=== PATIENT | female | born 1970 | race Caucasian/White ===

== ENCOUNTER 2019-11-17 15:53 | Emergency (ER) | payer BC, SELFPAY ==
[2019-11-17 16:06] VITALS: BP 115/64; PULSE 101; RESP 18; TEMP 37.2; O2SAT 100
--- NOTE | 2019-11-17 16:18 | ED.DENTAL ---
HPI - Dental/Oral General Chief complaint: Dental/Oral Stated complaint: abscess tooth/ear pain Time Seen by Provider: 11/17/19 16:18 Source: patient Mode of arrival: ambulatory Limitations: no limitations History of Present Illness HPI Narrative: Sandra Jamison is a 49 yo female who is on disability for anxiety, no hypertension are high blood pressure, comes here if with right ear decreased hearing and right tooth pain. 2 upper teeth are cracked and broken off Related Data Allergies Allergy/AdvReac Type Severity Reaction Status Date / Time No Known Allergies Allergy Verified 11/17/19 16:20 Review of Systems Review of Systems: Narrative: CONSTITUTIONAL: Denies fever, chills, sweats. EYES: Denies visual changes, redness, discharge. ENT: Denies rhinorrhea, congestion, sore throat, otalgia. Tooth pain right upper side, R ear feels clogged CARDIOVASCULAR: Denies chest pain, palpitations, edema. RESPIRATORY: Denies dyspnea, wheezing, cough GASTROINTESTINAL: Denies abdominal pain, nausea, vomiting, diarrhea. GENITOURINARY: Denies dysuria, hematuria, abnormal discharge SKIN: Denies rash or itching. NEUROLOGIC: Denies numbness, or focal weakness. PSYCHIATRIC: Denies anxiety or depression. PMFSH Past Medical History Medical History Anxiety No pertinent family history Surgical History Surgical History H/O section Family History Family History (Updated 11/17/19 @ 16:33 by Marta Ramos CNP) Other No active medical problems Social History Social History Smoking packs per day: 0.5 Smoking cigarettes per day: 10.0 Smoking status: Current every day smoker Alcohol intake: current Gender identity (if verbalized by the patient): Female Comments At time of signature, I agree with nursing past medical, surgical, social and family history. There is no relevant family history pertinent to the presenting complaint. Exam Narrative: Exam Narrative: GENERAL: This is a well-nourished, well-developed patient, in mild distress. HEAD: normocephalic, atraumatic. EYES: Sclera clear/white. Vision is grossly intact. EARS: External ears normal, auditory canals clear on L, R has cerumen and without drainage, TMs normal without perforation. Hearing grossly intact on L, decreased on R NOSE: External nose normal with nasal discharge, nares without redness, has rhinorrhea. Mouth: 2 upper right teeth- 1 fractured THROAT: Mucous membranes moist, NECK: Neck supple, non-tender CARDIOVASCULAR: Regular rate and rhythm without murmurs, gallops, or rubs. RESPIRATORY: Clear to auscultation. Breath sounds equal bilaterally. No wheezes, rales, or rhonchi. Occ dry cough GASTROINTESTINAL: Abdomen soft, non-tender, SKIN: warm, intact with no suspicious lesions or rash, good texture and turgor. NEURO: awake, alert, and oriented to person, place and time. There were no obvious focal neurologic abnormalities. Steady gait EXTREMITIES: Normal range of motion. BACK: Nontender without deformity Course Course Emergency Course: Started on PCN and debrox-make appointment with oral surgeon to have tooth removed Vital Signs Vital signs: Vital Signs Temperature 98.9 F 11/17/19 16:06 Pulse Rate 101 H 11/17/19 16:06 Respiratory Rate 18 11/17/19 16:06 Blood Pressure 115/64 11/17/19 16:06 Pulse Oximetry 100 11/17/19 16:06 Temperature 98.9 F 11/17/19 16:06 Pulse Rate 101 H 11/17/19 16:06 Respiratory Rate 18 11/17/19 16:06 Blood Pressure 115/64 11/17/19 16:06 Pulse Oximetry 100 11/17/19 16:06 [facility] - Dental/Oral Differential Diagnosis Differential diagnosis: Likely dental caries, toothache, dental abscess and fracture of tooth Discharge Plan Discharge Clinical Impression: Toothache, Excessive cerumen in right ear canal Fracture of
== END 2019-11-17 16:43 | disposition home or self-care (01) ==
PROVIDERS: Emergency Provider Nurse Practitioner
DX: K08.89 Other specified disorders of teeth and supporting structures (principal); H61.21 Impacted cerumen, right ear; S02.5XXA Fracture of tooth (traumatic), initial encounter for closed fracture; X58.XXXA Exposure to other specified factors, initial encounter; F17.210 Nicotine dependence, cigarettes, uncomplicated
CPT/HCPCS: 99213; G0463

== ENCOUNTER 2020-03-18 13:47 | Emergency (ER) | payer BC, SELFPAY ==
--- NOTE | 2020-03-18 14:01 | ED.GENADULT ---
HPI - General Adult General Chief complaint: Dental/Oral Stated complaint: tooth pain Time Seen by Provider: 03/18/20 14:02 Source: patient Mode of arrival: ambulatory Limitations: no limitations History of Present Illness HPI narrative: 49-year-old female patient presents to the [facility] with complaints of dental pain that started yesterday. Patient states she has had multiple dental abscesses to the same area before the past. Patient states they have been on and off again for about a year states she still has not seen a dentist due to the fact that she has a lot of anxiety about going to the dentist. Patient denies any fevers. Denies any sore throat, runny nose, cough, chest pain or shortness of breath. Related Data Allergies Allergy/AdvReac Type Severity Reaction Status Date / Time No Known Allergies Allergy Verified 11/17/19 16:20 Review of Systems Review of Systems: Narrative: CONSTITUTIONAL: Denies fever, chills, or sweats. EYES: Denies visual changes, redness, or discharge. ENT: Denies rhinorrhea, congestion, sore throat, or otalgia. Positive dental pain since yesterday CARDIOVASCULAR: Denies chest pain, palpitations, or edema. RESPIRATORY: Denies cough or dyspnea. GASTROINTESTINAL: Denies abdominal pain, nausea, vomiting, or diarrhea. GENITOURINARY: Denies dysuria or hematuria. SKIN: Denies rash or itching. MUSCULOSKELETAL: Denies back pain, joint pain, or myalgia. NEUROLOGIC: Denies headache, numbness, or weakness. PSYCHIATRIC: Denies anxiety or depression. [facility] Past Medical History Medical History Anxiety No pertinent family history Surgical History Surgical History H/O section Family History Family History Other No active medical problems Social History Social History Smoking packs per day: 0.5 Smoking cigarettes per day: 10.0 Smoking status: Current every day smoker Alcohol intake: current Gender identity (if verbalized by the patient): Female Comments At the time of my signature I agree with nursing past medical history, surgical, social, and family history. There is no relevant family history pertinent to the presenting complaint. Exam Narrative: Exam Narrative: GENERAL: Well-appearing, well-nourished, and in no acute distress. HEAD: Normocephalic, atraumatic. EYES: PERRLA and EOMI. ENT: Nares clear, no rhinorrhea or epistaxis. Mucous membranes moist. Patient has slight erythema noted to the right upper gum no obvious abscess visualized. There is a slight bump that is palpated to the right cheek area but not visualized. Patient does have very slight swelling noted to the left maxillary sinus as compared to the left. No warmth present. No obvious dental caries or broken teeth noted. NECK: Supple. No lymphadenopathy CHEST: Clear to auscultation. No respiratory distress. HEART: Regular rate and rhythm. No murmur heard. Normal peripheral pulses. ABDOMEN: Soft, nontender, nondistended, normal active bowel sounds. EXTREMITIES: Normal range of motion. No edema. SKIN: Warm, dry, no rash. NEURO: No focal deficits. Alert and oriented x3. Course Vital Signs Vital signs: Vital Signs Temperature 36.6 C 03/18/20 14:03 Pulse Rate 100 03/18/20 14:03 Respiratory Rate 16 03/18/20 14:03 Blood Pressure 132/67 03/18/20 14:03 Pulse Oximetry 100 03/18/20 14:03 Temperature 36.6 C 03/18/20 14:03 Pulse Rate 100 03/18/20 14:03 Respiratory Rate 16 03/18/20 14:03 Blood Pressure 132/67 03/18/20 14:03 Pulse Oximetry 100 03/18/20 14:03 Vital signs reviewed. Medical Decision Making Differential Diagnosis Differential Diagnosis: Differential diagnosis: Dental caries, periodontal disease, avulsed tooth, tooth infections, mandibular infe
[2020-03-18 14:03] VITALS: BP 132/67; PULSE 100; RESP 16; TEMP 36.6; O2SAT 100
== END 2020-03-18 14:24 | disposition home or self-care (01) ==
PROVIDERS: Emergency Provider Nurse Practitioner Family
DX: K04.7 Periapical abscess without sinus (principal); F17.210 Nicotine dependence, cigarettes, uncomplicated
CPT/HCPCS: 99213; G0463

== ENCOUNTER 2022-12-08 15:33 | Emergency (ER) | payer BC, SELFPAY ==
[2022-12-08] VITALS (8 sets, daily range): BP systolic 98–121; BP diastolic 46–77; PULSE 71–97; RESP 16–18; TEMP 35.9–36.7; O2SAT 100
[2022-12-08 16:00] LABS: Basophils Percent Auto 0.6 % (0.2-1.2); Eosinophils Absolute Auto 0.1 K/mm3 (0-0.3); Eosinophils Percent Auto 1.2 % (0-4.4); Hematocrit 28.7 % (37.0-47.0); Hemoglobin 7.3 g/dL (12.0-15.0); Immature Granulocyte Absolute 0.01 K/mm3 (0.00-0.031); Immature Granulocyte Percent A 0.1 % (0-0.5); Lymphocytes Absolute Auto 1.47 K/mm3 (0.9-3.2); Lymphocytes Percent Auto 21.2 % (18.3-44.2); Mean Corpuscular HGB Conc 25.4 g/dl (32-36); Mean Corpuscular Hemoglobin 18.1 pg (26-34); Mean Corpuscular Volume 71.2 fl (80-100); Mean Platelet Volume 9.2 fl (7.4-10.4); Monocytes Absolute Auto 0.5 K/mm3 (0.1-0.6); Monocytes Percent Auto 7.4 % (2.6-8.5); Neutrophils Absolute Auto 4.8 K/mm3 (1.3-6.7); Neutrophils Percent Auto 69.5 % (45.5-73.1); Platelet Count Result 567 k/mm3 (150-375); Red Blood Count 4.03 M/mm3 (4.2-5.4); Red Cell Distribution Width 25.1 % (11.5-14.5); White Blood Count 6.9 K/mm3 (4.5-10.0)
[2022-12-08 16:10] LABS: Anisocytosis 1+ (NORMAL); Ovalocytes 1+ (NORMAL); Platelet Estimate Adequate (Adequate)
[2022-12-08 16:11] LABS: Hypochromasia 2+ (NORMAL); Macrocytosis 1+ (NORMAL); Schistocytes None Seen (NORMAL); Target Cells 1+ (NORMAL); Tear Drop Cells 1+ (NORMAL)
[2022-12-08 16:12] LABS: Alanine Aminotransferase 16 U/L (6-35); Albumin Level 4.5 g/dL (3.5-5.1); Alkaline Phosphatase 65 U/L (38-126); Anion Gap 6 mmol/L (8-16); Aspartate Amino Transferase 30 U/L (14-36); Bilirubin,Total 0.4 mg/dL (0.2-1.3); Blood Urea Nitrogen 10 mg/dL (7-17); Calcium 9.5 mg/dL (8.4-10.2); Carbon Dioxide 24 mmol/L (22-30); Chloride 104 mmol/L (98-107); Estimated CRCL calculation 77 ml/min; Estimated Glomerular Filt Rate > 60; Glucose 91 mg/dL (65-110); Potassium 3.7 mmol/L (3.4-5.0); Sodium 134 mmol/L (137-145)
--- NOTE | 2022-12-08 19:26 | ED.RECABL ---
HPI - Recheck/Abnormal Lab/Rx General Chief Complaint: Recheck/Abnormal Lab/Rx <ALFREDO Zhao Last Filed: 12/09/22 02:45> Stated Complaint: needs blood transfusion <ALFREDO Zhao Last Filed: 12/09/22 02:45> Time Seen by Provider: 12/08/22 18:12 <ALFREDO Zhao Last Filed: 12/09/22 02:45> Source: patient <ALFREDO Zhao Last Filed: 12/09/22 02:45> Mode of arrival: ambulatory <ALFREDO Zhao Last Filed: 12/09/22 02:45> Limitations: no limitations <ALFREDO Zhao Last Filed: 12/09/22 02:45> History of Present Illness HPI narrative: Patient is a 52 y/o female who presents to the ED with c/o low hemoglobin. Patient reports she saw a new primary care doctor last Wednesday for the first time in years. She had routine blood work done and was notified last that her hemoglobin was low at 6.0. She was started on Iron supplements that day and referred to the ED for blood transfusion. Patient reports a history of debilitating anxiety and states it took her until now to process needing a blood transfusion and come to the ED. She denies a history of anemia that she is aware of or previous blood transfusions. Denies Hx of PUD, GIB. She does report intermittent heavy vaginal bleeding and spotting for the last 8 months. She believes she is perimenopausal. Last reports a heavy episode of bleeding last week prior to the blood work. She has not seen an HEALTH AIDE for this. She reports intermittent dizziness/lightheadedness with position changes and fatigue for the past several months. Denied any worsening of these symptoms recently. Denies any abdominal pain, syncope, diarrhea, melena, rectal bleeding, epistaxis, vision changes, CP, SOB. <ALFREDO Zhao Last Filed: 12/09/22 02:45> Related Data Allergies/Adverse Reactions: Allergies Allergy/AdvReac Type Severity Reaction Status Date / Time No Known Allergies Allergy Verified 11/17/19 16:20 <Amy Lang PA-C - Last Filed: 12/09/22 02:45> Review of Systems Review of Systems: CONSTITUTIONAL: Denies fever, chills, or sweats. EYES: Denies visual changes. CARDIOVASCULAR: Denies chest pain. RESPIRATORY: Denies dyspnea. GASTROINTESTINAL: Denies abdominal pain, nausea, vomiting, or diarrhea. GENITOURINARY: See HPI. SKIN: Denies rash or itching. MUSCULOSKELETAL: Denies back pain, joint pain, or myalgia. NEUROLOGIC: See HPI. PSYCHIATRIC: See HPI. <Amy Lang PA-C - Last Filed: 12/09/22 02:45> All systems reviewed & are unremarkable except as noted in HPI and below <Amy Lang PA-C - Last Filed: 12/09/22 02:45> PMFSH Past Medical History Medical History: Medical History Agoraphobia Anxiety <Amy Lang PA-C - Last Filed: 12/09/22 02:45> Surgical History Surgical History: Surgical History H/O section <Amy Lang PA-C - Last Filed: 12/09/22 02:45> Family History Family History: Family History Other No active medical problems <Amy Lang PA-C - Last Filed: 12/09/22 02:45> Social History Social History: Social History Smoking packs per day: 0.5 Smoking cigarettes per day: 10.0 Smoking status: Current every day smoker Alcohol intake: current Gender identity (if verbalized by the patient): Female <Amy Lang PA-C - Last Filed: 04/26/23 02:45> Exam Narrative: GENERAL: Well appearing, thin, non-toxic, in no acute distress. HEAD: Normocephalic, atraumatic. NECK: Supple. No adenopathy, no masses. RESPIRATORY: Airway patent, respirations nonlabored. No tachypnea or respiratory distres
[2022-12-08 20:06] LABS: Lactate Dehydrogenase 152 U/L (120-246)
[2022-12-08 20:16] LABS: Transferrin 370 mg/dL (206-381)
[2022-12-08 20:46] LABS: Iron < 10 ug/dL (37-170)
[2022-12-08] MEDS: SODIUM CHLORIDE 0.9% IV 250 ML 30 ML IV CONT (21:07)
[2022-12-08 21:13] LABS: Folic Acid 18.8 ng/mL (2.76->20)
[2022-12-08 21:33] LABS: Percent Iron Saturation < 2 % (20-50)
--- NOTE | 2022-12-14 11:05 | PC.NURSE ---
Late entry: NS fluids were infused and stopped 12/11/22 at approximately 2230.
== END 2022-12-08 22:55 | disposition home or self-care (01) ==
PROVIDERS: Emergency Medicine; Emergency Provider Physician Assistant; PCP Physician Assistant
DX: D50.9 Iron deficiency anemia, unspecified (principal); N93.9 Abnormal uterine and vaginal bleeding, unspecified
CPT/HCPCS: 36415; 36430; 80053; 82607; 82728; 82746; 83540; 83550; 83615; 84443; 84466; 85025; 86850; 86900; 86901; 86923; 96360; 99283; 99285; J7050; P9016

== ENCOUNTER 2023-05-04 17:54 | Observation (INO) | payer BC, SELFPAY ==
[2023-05-04] VITALS (12 sets, daily range): BP systolic 91–123; BP diastolic 47–67; PULSE 70–95; RESP 12–21; TEMP 36.4–36.9; O2SAT 98–100; BMI 25.1
--- NOTE | ~2023-05-04 | US_ITS ---
US pelvic complete w TV DATE: 05/04/2023 21:13 INDICATION: Heavy intermittent vaginal bleeding with clots TECHNIQUE: Real-time imaging via transabdominal and transvaginal approaches COMPARISON: None FINDINGS: The uterus is enlarged, measuring 11.6 cm approximate vertical dimension, 6.8 cm anteropost erior dimension. There is very prominent heterogeneous echogenic solid material within the endometria l cavity with prominent vascularity, measuring up to 7.2 cm vertical 3.7 cm anteroposterior and 4.1 c m transverse dimension, highly suspicious for endometrial carcinoma. Gynecologic consultation and end ometrial biopsy are recommended. The ovaries are not visualized. No pelvic free fluid collection is noted. IMPRESSION: Large heterogeneous solid endometrial mass with prominent vascularity, very suspicious fo r endometrial carcinoma; gynecologic consultation and endometrial biopsy recommended Reviewed, dictated and finalized at [facility] Reviewed, dictated and finalized at [facility]. IMPRESSION: Large heterogeneous solid endometrial mass with prominent vasculari ty, very suspicious for endometrial carcinoma; gynecologic consultation and end ometrial biopsy recommended
[2023-05-04 18:30] LABS: Basophils Percent Auto 0.6 % (0.2-1.2); Eosinophils Absolute Auto 0.1 K/mm3 (0-0.3); Eosinophils Percent Auto 1.4 % (0-4.4); Hematocrit 23.9 % (37.0-47.0); Lymphocytes Absolute Auto 1.67 K/mm3 (0.9-3.2); Lymphocytes Percent Auto 32.5 % (18.3-44.2); Mean Corpuscular HGB Conc 26.8 g/dl (32-36); Mean Corpuscular Hemoglobin 19.3 pg (26-34); Mean Platelet Volume 9.7 fl (7.4-10.4); Monocytes Absolute Auto 0.5 K/mm3 (0.1-0.6); Monocytes Percent Auto 9.1 % (2.6-8.5); Neutrophils Absolute Auto 2.9 K/mm3 (1.3-6.7); Neutrophils Percent Auto 56.4 % (45.5-73.1); Platelet Count Result 483 k/mm3 (150-375); Red Blood Count 3.32 M/mm3 (4.2-5.4); Red Cell Distribution Width 17.5 % (11.5-14.5); White Blood Count 5.1 K/mm3 (4.5-10.0)
[2023-05-04 18:51] LABS: Hemoglobin 6.4 g/dL (12.0-15.0)
[2023-05-04 18:53] LABS: Platelet Estimate Increased (Adequate)
[2023-05-04 18:56] LABS: Large Platelets Present
[2023-05-04 18:57] LABS: Anisocytosis 2+ (NORMAL); Hypochromasia 3+ (NORMAL); Microcytosis 2+ (NORMAL); Schistocytes None Seen (NORMAL)
--- NOTE | 2023-05-04 19:12 | PC.NURSE ---
Patient report given to SUDHIR Wiggins. All questions answered and care of patient transferred.
--- NOTE | 2023-05-04 19:45 | ED.RECABL ---
HPI - Recheck/Abnormal Lab/Rx General Chief Complaint: Recheck/Abnormal Lab/Rx Stated Complaint: blood transfusion Time Seen by Provider: 05/04/23 19:01 Source: patient, RN notes reviewed and old records reviewed Mode of arrival: ambulatory Limitations: no limitations History of Present Illness HPI narrative: This is a 52 year old female with history DUB, anemia who presents for evaluation of low hemoglobin. She states she has been feeling fatigue for 1 month. Her PCP ordered labs today and she was found to have hemoglobin 6.7. She came to ER for transfusion. She reports she takes iron supplementation every other day for anemia. She was on her last menstrual period from April 16 to . Today she reports she has mucous discharge but no bleeding. She denies chest pain, other bleeding. She is following with line service person in [facility] but they have been unable to complete evaluation of her bleeding per patient due to her bleeding. Related Data Allergies Allergy/AdvReac Type Severity Reaction Status Date / Time No Known Allergies Allergy Verified 05/04/23 19:01 Review of Systems Constitutional: Constitutional: Reports fatigue and Denies weakness Cardiovascular: Cardiovascular: Denies syncope, Denies rapid heart rate, Denies irregular heart rhythm, Denies leg edema and Denies dyspnea Respiratory: Respiratory: Denies chest congestion, Denies hemoptysis, Denies excessive phlegm production and Denies dyspnea Gastrointestinal: Gastrointestinal: Denies abdominal pain, Denies hematochezia, Denies diarrhea and Denies vomiting Genitourinary: Genitourinary: Reports abnormal vaginal bleeding, Denies hematuria and Denies dysuria Musculoskeletal: Musculoskeletal: Denies joint swelling, Denies loss of height and Denies muscle weakness Neurologic: Denies syncope, Denies focal weakness and Denies weakness PMFSH Past Medical History Medical History Agoraphobia Anxiety Surgical History Surgical History H/O section Family History Family History Other No active medical problems Social History Social History Smoking packs per day: 0.5 Smoking cigarettes per day: 10.0 Smoking status: Current every day smoker Alcohol intake: current Gender identity (if verbalized by the patient): Female Exam Const: General: no acute distress and alert Nutritional Appearance: well nourished Orientation/consciousness: patient oriented x3 HENMT: Head: normal to inspection Eyes: EOM: EOMs intact bilaterally Chest: Chest palpation & inspection: normal inspection of the chest Resp: Effort & Inspection: normal respiratory effort Auscultation: clear to auscultation bilaterally Cardio: Rate: regular rate Rhythm: regular rhythm Heart sounds: no murmurs GI: GI Palp: Yes Soft to palpation, No Tenderness to palpation present (GI), No Guarding due to palpation present (GI) and No Rigid due to palpation Auscultation: normal bowel sounds Skin: General skin exam: pallor Neuro: General: patient oriented x3, moves all extremities and CN's II-XI intact bilaterally Gait exam (Neuro): Normal gait present Extrem: General: normal to inspection Psych: Mental Status: mental status grossly normal Affect: normal affect Attitude: cooperative Course Reevaluation(s) Reevaluation #1: I Discussed with patient US findings of endometrial mass. She does not know line service person name but states she only saw her once. I Discussed I Will talk to our line service person website optimization strategist for treatment and admission Date: 05/04/23 Time: 21:30 Consultations Consultation #1: I Discussed case with DR. Mulligan. PAtient will low hemoglobin and US shows endometrial mass. She agrees to obs patient in hospital . PAtient to get 2
[2023-05-04 21:13] LABS: Alanine Aminotransferase 15 U/L (6-35); Albumin Level 4.7 g/dL (3.5-5.1); Alkaline Phosphatase 55 U/L (38-126); Anion Gap 8 mmol/L (8-16); Aspartate Amino Transferase 29 U/L (14-36); Bilirubin,Total 0.4 mg/dL (0.2-1.3); Blood Urea Nitrogen 9 mg/dL (7-17); Calcium 9.2 mg/dL (8.4-10.2); Carbon Dioxide 24 mmol/L (22-30); Chloride 106 mmol/L (98-107); Estimated CRCL calculation 77 ml/min; Estimated Glomerular Filt Rate > 60; Glucose 89 mg/dL (65-110); Partial Thromboplastin Time 23.1 SECONDS (22.3-36.8); Potassium 3.7 mmol/L (3.4-5.0); Prothrombin Time 13.2 Seconds (11.1-14.7); Sodium 138 mmol/L (137-145)
[2023-05-04 21:40] LABS: Iron 17 ug/dL (37-170)
[2023-05-04 21:49] LABS: Percent Iron Saturation 4 % (20-50)
[2023-05-04] MEDS: SODIUM CHLORIDE 0.9% IV 250 ML 30 ML IV CONT (21:50)
[2023-05-04 22:35] LABS: Folic Acid 9.4 ng/mL (2.76->20)
--- NOTE | 2023-05-04 23:43 | ADMGEN ---
This patient, Sandra Jamison, was admitted to Medical Room 242-01. Patient/family oriented to hospital policies and general routines including ID bracelet, bed and alarms, visiting hours, pain management, procedures, bathroom and other care routines, personal items, smoking policy, room service/diet, and visiting hours. Information on how to activate the Rapid Response Team has been discussed. Patient/Family are encouraged to report perceived risks to care and to ask questions if they do not understand what they are told or what they should do.
--- NOTE | 2023-05-04 23:44 | PC.NURSE ---
Pt's blood infused upon being transferred to pt room. November, RN assumed care of pt at that time.
[2023-05-05 00:14] VITALS: BP 144/73; PULSE 77; RESP 20; TEMP 36.2; O2SAT 98
[2023-05-05 06:00] VITALS: BP 113/48; PULSE 69; RESP 21; TEMP 36; O2SAT 100
[2023-05-05 06:23] LABS: Basophils Percent Auto 0.5 % (0.2-1.2); Eosinophils Absolute Auto 0.1 K/mm3 (0-0.3); Eosinophils Percent Auto 2.3 % (0-4.4); Hemoglobin 9.4 g/dL (12.0-15.0); Immature Granulocyte Absolute 0.01 K/mm3 (0.00-0.031); Immature Granulocyte Percent A 0.2 % (0-0.5); Lymphocytes Percent Auto 32.1 % (18.3-44.2); Mean Corpuscular HGB Conc 29.4 g/dl (32-36); Mean Corpuscular Hemoglobin 22.7 pg (26-34); Mean Corpuscular Volume 77.3 fl (80-100); Mean Platelet Volume 10.2 fl (7.4-10.4); Monocytes Absolute Auto 0.6 K/mm3 (0.1-0.6); Monocytes Percent Auto 11.1 % (2.6-8.5); Neutrophils Percent Auto 53.8 % (45.5-73.1); Platelet Count Result 399 k/mm3 (150-375); Red Blood Count 4.14 M/mm3 (4.2-5.4); Red Cell Distribution Width 19.9 % (11.5-14.5); White Blood Count 5.6 K/mm3 (4.5-10.0)
[2023-05-05 07:06] LABS: Anisocytosis 2+ (NORMAL); Hypochromasia 1+ (NORMAL); Microcytosis 1+ (NORMAL); Schistocytes None Seen (NORMAL)
[2023-05-05 07:07] LABS: Tear Drop Cells 1+ (NORMAL)
--- NOTE | 2023-05-05 07:38 | PM.IMHP ---
H&P: HPI History of Present Illness Date/Time: 05/05/23 07:38 Chief Complaint: fatigue, vaginal bleeding Narrative: Sandra is a 52yo who presented to the ED last night with severe fatigue in the setting of worsening vaginal bleeding over the last year, very bad over the last 6 mos, with episodes lasting up to 18 days, very heavy with clots. She is not menopausal, never stopped periods. Bleeding irregular last year, lots of spotting in between. Cramping with bleeding. She gets SOB very easily. Hgb 6 in ED. NO current bleeding. Just established with supervisor farm equipment maintenance in [place] and was told to schedule an US and pap when not bleeding, but she has been unable to because she is always bleeding. Her medical history is noncontributory. Tubes tied. One CS. 2 eab, 1 sab. Review of Systems Review of Systems: All systems reviewed & are unremarkable except as noted in HPI and below PMFSH Past Medical History Medical History Agoraphobia Anxiety Surgical History Surgical History H/O section Family History Family History Other No active medical problems Social History Social History Smoking packs per day: 0.5 Smoking cigarettes per day: 10.0 Years smoked: 35 Smoking pack-years: 17.50 Smoking status: Current every day smoker Tobacco type: cigarettes Alcohol intake: never Substance use: never Lack of Transportation: No Lack of Food: Never True Current Housing: I Have Housing Concerned About Future Housing: No Difficulty Paying Gas/Electric Bills: No Difficulty Paying for Meds: No Currently Unemployed: No Education: High School Diploma/GED Difficulty w/ Childcare or Family Care: No Gender identity (if verbalized by the patient): Female Spiritual care concerns: No Meds Home Medications and Allergies Home Medications Medication Instructions Recorded Confirmed Type acetaminophen 500 mg tablet 500 mg PO QID PRN Headache 05/04/23 05/05/23 History (Acetaminophen Extra Strength) albuterol sulfate 90 mcg/actuation 2 puff inhalation PRN PRN Wheezing 05/04/23 05/05/23 History aerosol inhaler clonazepam 0.5 mg tablet 0.5 mg PO PRN PRN Panic Attack(S) 05/04/23 05/05/23 History ferrous sulfate 325 mg (65 mg 25 mg PO EVERY OTHER DAY 05/04/23 05/05/23 History iron) tablet (FeroSul) medroxyprogesterone 10 mg tablet 10 mg PO 10XD 05/04/23 05/05/23 History naproxen sodium 220 mg capsule 220 mg PO BID PRN Cramps 05/04/23 05/05/23 History (Aleve) nicotine 7 mg/24 hr daily 14 mg transdermal QAM 05/04/23 05/05/23 History transdermal patch Allergies Allergy/AdvReac Type Severity Reaction Status Date / Time No Known Allergies Allergy Verified 05/04/23 19:01 Vital Signs Vital Signs - 24 hr 05/04/23 18:10 05/04/23 19:00 05/04/23 19:01 Temperature 97.6 F Pulse Rate 95 91 Respiratory Rate 16 15 14 Blood Pressure 112/67 116/47 L Pulse Oximetry 98 100 Oxygen Delivery Room Air 05/04/23 19:25 05/04/23 21:05 05/04/23 21:43 Temperature 98.5 F Pulse Rate 79 77 77 Respiratory Rate 21 H 14 12 Blood Pressure 106/49 L 98/49 L 103/50 L Pulse Oximetry 100 100 100 Oxygen Delivery 05/04/23 21:59 05/04/23 22:15 05/04/23 22:29 Temperature 98.5 F 98.5 F Pulse Rate 73 73 74 Respiratory Rate 13 12 13 Blood Pressure 104/57 L 104/57 L 91/50 L Pulse Oximetry 100 100 100 Oxygen Delivery 05/04/23 22:51 05/04/23 23:03 05/04/23 23:10 Temperature 98.3 F 98.5 F Pulse Rate 79 70 71 Respiratory Rate 13 14 16 Blood Pressure 123/48 L 101/55 L 101/55 L Pulse Oximetry 100 99 100 Oxygen Delivery 05/05/23 00:13 05/05/23 00:14 Temperature 97.1 F L Pulse Rate 77 Respiratory Rate 20 Blood Pressure 144/73
--- NOTE | 2023-05-05 07:50 | PM.DS ---
DS: Admitting Diagnosis Discharge Date 05/05/23 Admitting Diagnosis anemia, uterine mass DS: Discharge Diagnosis Discharge Diagnosis (1) Abnormal uterine bleeding (AUB): Code(s): N93.9 - Abnormal uterine and vaginal bleeding, unspecified Status: Acute (2) Symptomatic anemia: Code(s): D64.9 - Anemia, unspecified Status: Acute (3) Endometrial mass: Code(s): N94.89 - Other specified conditions associated with female genital organs and menstrual cycle Status: Acute DS: Summary Hospital Course Hospital Course: Sandra was admitted through the ED with a hemoglobin of 6 with a history of very heavy vaginal bleeding. She received 2 units of pRBCs. A pelvic ultrasound showed a large endometrial mass concerning for endometrial carcinoma. Her hemoglobin was 9.4 post transfusion and she was discharged home with follow up for an endometrial biopsy within 2 days. Status at Discharge Functional status at discharge: independent ambulation Time Spent with Patient Time attestation: Total time spent providing and/or coordinating discharge services: Time spent: Greater than 30 minutes Exam Narrative: NAD see vital signs abdomen soft, nontender extremities nontender, no edema DS: Data Data Completed and Pending Labs on day of discharge: Labs from last 24 hours 05/05/23 05/04/23 05/04/23 05:34 21:17 20:54 WBC 5.6 RBC 4.14 L Hgb 9.4 L D Hct 32.0 L MCV 77.3 L D MCH 22.7 L D MCHC 29.4 L RDW 19.9 H Plt Count 399 H MPV 10.2 Immature Gran % (Auto) 0.2 Neut % (Auto) 53.8 Lymph % (Auto) 32.1 [place] % (Auto) 11.1 H Eos % (Auto) 2.3 Baso % (Auto) 0.5 Lymph # (Auto) 1.80 [place] # (Auto) 0.6 Eos # (Auto) 0.1 Baso # (Auto) 0.0 Abs Immat Gran (auto) 0.01 Absolute Neuts (auto) 3.0 Absolute Nucleated RBC 0.0 Nucleated RBC % 0.0 Platelet Estimate Slightly increased Large Platelets Hypochromasia 1+ Anisocytosis 2+ Microcytosis 1+ Tear Drop Cells 1+ Schistocytes None seen PT 13.2 INR 1.0 APTT 23.1 Sodium 138 Potassium 3.7 Chloride 106 Carbon Dioxide 24 Anion Gap 8 BUN 9 Creatinine 0.60 L Estim Creat Clear Calc 77 Estimated GFR > 60 Glucose 89 Calcium 9.2 Iron 17 L TIBC 465 H % Saturation 4 L Total Bilirubin 0.4 AST 29 ALT 15 Alkaline Phosphatase 55 Total Protein 8.0 Albumin 4.7 Vitamin B12 345.0 Folate 9.4 Blood Type Antibody Screen Crossmatch 05/04/23 18:21 WBC 5.1 RBC 3.32 L Hgb 6.4 L* Hct 23.9 L MCV 72.0 L MCH 19.3 L MCHC 26.8 L RDW 17.5 H Plt Count 483 H MPV 9.7 Immature Gran % (Auto) 0.0 Neut % (Auto) 56.4 Lymph % (Auto) 32.5 [place] % (Auto) 9.1 H Eos % (Auto) 1.4 Baso % (Auto) 0.6 Lymph # (Auto) 1.67 [place] # (Auto) 0.5 Eos # (Auto) 0.1 Baso # (Auto) 0.0 Abs Immat Gran (auto) 0.00 Absolute Neuts (auto) 2.9 Absolute Nucleated RBC 0.0 Nucleated RBC % 0.0 Platelet Estimate Increased Large Platelets Present Hypochromasia 3+ Anisocytosis 2+ Microcytosis 2+ Tear Drop Cells Schistocytes None seen PT INR APTT Sodium Potassium Chloride Carbon Dioxide Anion Gap BUN Creatinine Estim Creat Clear Calc Estimated GFR Glucose Calcium Iron TIBC % Saturation Total Bilirubin AST ALT Alkaline Phosphatase Total Protein Albumin Vitamin B12 Folate Blood Type A Positive Antibody Screen Negative Crossmatch See Detail Discharge Plan Discharge Attending physician on discharge: Naomi Mulligan Discharging Clinician: Naomi Mulligan Anticipated Discharge Date/Time: 05/05/23 07:47 Patient Disposition: Home, Self-Care Activity: pelvic rest Diet: regular Patient Instructions: Antibiotic Form, How to Stop Smoking (DC) Stand Alone Forms: General Discharge Information Follow-up/Referrals: Naomi Mulligan
== END 2023-05-05 08:45 | disposition home or self-care (01) ==
LOC: ANHED 22:06 → ANH2MED 22:47
PROVIDERS: Emergency Medicine; Admitting Provider Obstetrics & Gynecology; Emergency Provider General Practice; PCP Physician Assistant; Visit Provider Obstetrics & Gynecology
DX: N94.89 Other specified conditions associated with female genital organs and menstrual cycle (principal); D64.9 Anemia, unspecified; N93.9 Abnormal uterine and vaginal bleeding, unspecified; F17.210 Nicotine dependence, cigarettes, uncomplicated
CPT/HCPCS: 36415; 36430; 76830; 76856; 80053; 81025; 82607; 82746; 83540; 83550; 85025; 85610; 85730; 86850; 86900; 86901; 86923; 96360; 99285; G0378; G0379; J7050; P9016

== ENCOUNTER 2024-02-22 15:21 | Emergency (ER) | payer BC, SELFPAY ==
[2024-02-22 15:33] VITALS: BP 119/45; PULSE 93; RESP 16; TEMP 36.4; O2SAT 98
--- NOTE | 2024-02-22 15:33 | ED.DENTAL ---
HPI - Dental/Oral General Chief complaint: Dental/Oral Stated complaint: right side tooth issue Time Seen by Provider: 02/22/24 15:42 Mode of arrival: ambulatory Limitations: no limitations History of Present Illness HPI Narrative: 53-year-old female presents with concern for right lower dental pain and jaw swelling. Reports symptoms started 2 days ago. Reports she has poor oral health. Denies fever, headache, trouble swallowing MD Complaint: tooth pain Related Data Home Medications Medication Instructions Recorded Confirmed bupropion HCl 100 mg tablet,12 hr 100 mg PO DAILY 02/22/24 02/22/24 sustained-release estradiol 0.01% (0.1 mg/gram) 0.1 applic vaginal DIRECTED 02/22/24 02/22/24 vaginal cream estradiol 0.1 mg/24 hr semiweekly 0.1 mg transdermal WEEKLY 02/22/24 02/22/24 transdermal patch hydroxyzine pamoate 25 mg capsule 25 mg PO DAILY 02/22/24 02/22/24 ibuprofen 800 mg tablet 800 mg PO TID PRN Pain 02/22/24 02/22/24 Allergies Allergy/AdvReac Type Severity Reaction Status Date / Time No Known Allergies Allergy Verified 02/22/24 15:37 Review of Systems Review of Systems: CONSTITUTIONAL: Denies malaise, chills, sweats, or fever. EYES: Denies visual changes ENT: Denies rhinorrhea, congestion, sinus pain, otalgia or sore throat. Reports right lower dental pain CARDIOVASCULAR: Denies chest pain, palpitations RESPIRATORY: Denies cough or dyspnea. SKIN: Denies rash or itching. MUSCULOSKELETAL: Denies myalgia. NEUROLOGIC: Denies numbness, weakness, or headache. All systems reviewed & are unremarkable except as noted in HPI and below PMFSH Past Medical History Medical History Agoraphobia Anxiety Surgical History Surgical History H/O section Family History Family History Other No active medical problems Social History Social History Smoking packs per day: 0.5 Smoking cigarettes per day: 10.0 Years smoked: 35 Smoking pack-years: 17.50 Smoking status: Current every day smoker Tobacco type: cigarettes Alcohol intake: never Substance use: never Lack of Transportation: No Lack of Food: Never True Current Housing: I Have Housing Concerned About Future Housing: No Difficulty Paying Gas/Electric Bills: No Difficulty Paying for Meds: No Currently Unemployed: No Education: High School Diploma/GED Difficulty w/ Childcare or Family Care: No Gender identity (if verbalized by the patient): Female Spiritual care concerns: No Comments At time of signature, agree with nursing past medical, surgical, social and family history. There is no relevant family history pertinent to the presenting complaint Exam Narrative: GENERAL: Well-appearing, well-nourished, and in no acute distress. HEAD: Normocephalic, atraumatic. EYES: PERRLA, sclera clear ENT: Nares clear, turbinates pink, no rhinorrhea or epistaxis. Mucous membranes moist. TM pearly hoff with sharp light reflex bilaterally; no tragal tenderness. Oropharynx without erythema or lesions. Tonsils not enlarged and without exudate. Missing teeth, broken teeth, caries, mild right jaw swelling NECK: Supple. No lymphadenopathy. CHEST: No respiratory distress. Speaks in full sentences. HEART: Regular rate and rhythm. SKIN: Warm, dry, no visible rash. NEURO: Alert and oriented x3. PSYCH: Normal mood and affect Course Course Emergency Course: Patient is aware of diagnosis, understands and agrees to treatment plan. Anticipatory guidance given. Patient agrees to follow-up as directed and is aware of reasons to seek care at the emergency department. Portions of this record may have been created with voice recognition software Level of Care: [facility]
== END 2024-02-22 15:54 | disposition home or self-care (01) ==
PROVIDERS: Emergency Provider Nurse Practitioner; PCP Physician Assistant
DX: K04.7 Periapical abscess without sinus (principal); F17.210 Nicotine dependence, cigarettes, uncomplicated; F41.9 Anxiety disorder, unspecified
CPT/HCPCS: 99213; G0463

== ENCOUNTER 2024-03-14 17:21 | Emergency (ER) | payer BC, SELFPAY ==
[2024-03-14 17:28] VITALS: BP 129/62; PULSE 83; RESP 16; TEMP 37.2; O2SAT 99
--- NOTE | 2024-03-14 17:38 | ED.DENTAL ---
HPI - Dental/Oral General Chief complaint: Dental/Oral Stated complaint: Dental Pain History of Present Illness HPI Narrative: Patient presents with complaints of right lower jaw/gingiva pain. She reports this has been present this particular time for about 3 days. She reports repeated infections to this site. She has been unable to get into a dentist that she can afford. She is currently trying to figure out how to have all of her teeth extracted as recommended by the last stent is that she went to. She denies any fever, chills, sweats. She reports she is unable to chew on the affected side. She is able to eat and drink. Able to manage own secretions. No swelling into the face or neck. Denies any active drainage from the gingiva. Denies any injury or trauma. Voices no other concerns or complaints at this time Related Data Home Medications Medication Instructions Recorded Confirmed bupropion HCl 100 mg tablet,12 hr 100 mg PO DAILY 02/22/24 03/14/24 sustained-release estradiol 0.01% (0.1 mg/gram) 0.1 applic vaginal DIRECTED 02/22/24 03/14/24 vaginal cream estradiol 0.1 mg/24 hr semiweekly 0.1 mg transdermal WEEKLY 02/22/24 03/14/24 transdermal patch Allergies Allergy/AdvReac Type Severity Reaction Status Date / Time No Known Allergies Allergy Verified 03/14/24 17:22 Review of Systems Review of Systems: All systems reviewed & are unremarkable except as noted in HPI and below Constitutional: Constitutional: Reports no additional constitutional complaints ENT: Reports system reviewed and no additional complaints, except as documented, Reports as per HPI, Reports dental pain and Reports mouth pain Cardiovascular: Cardiovascular: Reports no additional cardiovascular complaints Respiratory: Respiratory: Reports no additional respiratory complaints Gastrointestinal: Gastrointestinal: Reports no additional gastrointestinal complaints [facility], [facility] Past Medical History Medical History Agoraphobia Anxiety Surgical History Surgical History H/O section Family History Family History Other No active medical problems Social History Social History (Reviewed 03/14/24 @ 19:11 by SHERI Gaines Smoking packs per day: 0.5 Smoking cigarettes per day: 10.0 Years smoked: 35 Smoking pack-years: 17.50 Smoking status: Current every day smoker Tobacco type: cigarettes Alcohol intake: never Substance use: never Lack of Transportation: No Lack of Food: Never True Current Housing: I Have Housing Concerned About Future Housing: No Difficulty Paying Gas/Electric Bills: No Difficulty Paying for Meds: No Currently Unemployed: No Education: High School Diploma/GED Difficulty w/ Childcare or Family Care: No Gender identity (if verbalized by the patient): Female Spiritual care concerns: No Exam Const: General: cooperative, no acute distress, alert and awake Orientation/consciousness: oriented to person, oriented to place and oriented to time HENMT: Head: normal to inspection Ears: TM's normal bilaterally Mouth: Yes moist mucous membranes Teeth and gingiva: abnormal tooth and associated gingiva (Three right lower back teeth, decayed almost to nubs) and poor dentition Throat: tonsils normal Other: Poor dentition in general. Right lower with multiple teeth decayed almost to the point of knobs. Associated gingival swelling with some oozing of purulent material Neck: Lymphatic: lymphadenopathy (Right cervical) Resp: Effort & Inspection: normal respiratory effort and able to speak in complete sentences Auscultation: clear to auscultation bilaterally, no crackles, no rales, no rhonchi and no wheezes Cardio: Palpation: normal PMI Rate: regular rate Rhythm: regular rhythm Heart sounds:
== END 2024-03-14 17:45 | disposition home or self-care (01) ==
PROVIDERS: Emergency Provider Nurse Practitioner Family; PCP Physician Assistant
DX: K04.7 Periapical abscess without sinus (principal); F17.210 Nicotine dependence, cigarettes, uncomplicated; F41.9 Anxiety disorder, unspecified
CPT/HCPCS: 99213; G0463

== ENCOUNTER 2024-08-06 14:51 | Emergency (ER) | payer BC, SELFPAY ==
--- NOTE | ~2024-08-06 | XR_ITS ---
XR ankle LT min 3V DATE: 08/06/2024 15:33 INDICATION: Inversion injury. Lateral left ankle pain TECHNIQUE: 4 views COMPARISON: None FINDINGS: There is a spiral fracture of the distal fibular diametaphysis with less than one cortical width posterior and no significant medial or lateral displacement. No significant angulation. The medial malleolus and posterior malleolus are intact. Alignment is preserved at the tibiotalar alex nt. There is mild plantar calcaneal enthesopathy without associated erosive change or periostitis. IMPRESSION: Slightly posteriorly displaced spiral fracture of the distal fibular diametaphysis Reviewed, dictated and finalized at location A. [employer] [facility] IMPRESSION: Slightly posteriorly displaced spiral fracture of the distal fibula r diametaphysis
[2024-08-06 14:55] VITALS: BP 120/57; PULSE 98; RESP 20; TEMP 36.9; O2SAT 100
--- NOTE | 2024-08-06 15:25 | ED.LOWEXIN ---
HPI - Extremity Injury (Lower) General Chief Complaint: Extremity Injury, Lower Stated Complaint: Left Ankle Pain Source: patient Mode of arrival: ambulatory Limitations: no limitations History of Present Illness HPI Narrative: 53-year-old female presented for complaint of left ankle pain, swelling, and bruising after injury 1 week ago. She states she rolled the ankle at that time and has continued to walk on it but reports pain with weight bearing. Bruising is described as green and yellow. She has used someone's crutches, applied ice and taking Tylenol and ibuprofen. Says wrapping it causes pain. Denies numbness, tingling, weakness or deformity. Related Data Home Medications ?Medication ?Instructions ?Recorded ?Confirmed ?Last Taken ?Type bupropion HCl 100 mg tablet,12 hr 100 mg PO DAILY 02/22/24 08/06/24 Unknown History sustained-release estradiol 0.01% (0.1 mg/gram) 0.1 applic vaginal DIRECTED 02/22/24 08/06/24 Unknown History vaginal cream estradiol 0.1 mg/24 hr semiweekly 0.1 mg transdermal WEEKLY 02/22/24 08/06/24 Unknown History transdermal patch Allergies Allergy/AdvReac Type Severity Reaction Status Date / Time No Known Allergies Allergy Verified 08/06/24 15:04 Review of Systems Review of Systems: CONSTITUTIONAL: Denies body aches, fever, chills CARDIOVASCULAR: Denies chest pain, palpitations, or edema. RESPIRATORY: Denies cough or dyspnea. SKIN: reports left knee abrasion MUSCULOSKELETAL: reports left ankle pain NEUROLOGIC: Denies headache, numbness, tingling, or weakness. PSYCH: Denies depression or anxiety. All systems reviewed & are unremarkable except as noted in HPI and below PMFSH Past Medical History Medical History Agoraphobia Anxiety Surgical History Surgical History H/O section Family History Family History Other No active medical problems Social History Social History Smoking packs per day: 0.5 Smoking cigarettes per day: 10.0 Years smoked: 35 Smoking pack-years: 17.50 Smoking status: Current every day smoker Tobacco type: cigarettes Alcohol intake: never Substance use: never Lack of Transportation: No Lack of Food: Never True Current Housing: I Have Housing Concerned About Future Housing: No Difficulty Paying Gas/Electric Bills: No Difficulty Paying for Meds: No Currently Unemployed: No Education: High School Diploma/GED Difficulty w/ Childcare or Family Care: No Gender identity (if verbalized by the patient): Female Spiritual care concerns: No Comments At time of signature, I have reviewed and agree with nursing past medical, surgical, social and family history unless otherwise noted. Please see nursing chart for further information. There is no relevant family history pertinent to the presenting complaint Exam Narrative: GENERAL: Well-appearing CHEST: Speaks in full sentences. No respiratory distress. HEART: Regular rate and rhythm. Normal and equal peripheral pulses. EXTREMITIES: Left foot has normal strength and sensation, limited range of motion at ankle due to pain with movement. Moderate left ankle swelling and green/yellow ecchymosis, tender with palpation to lateral malleolus. No open wounds, or obvious deformity; pulse palpable and equal bilaterally, skin warm, dry, pink. Capillary refill less than 3 seconds. SKIN: Warm, dry, Left knee abrasion 1.5cm diameter, no swelling NEURO: Alert and oriented x3. PSYCH: Normal mood and affect Course Course Emergency Course: Patient is aware of diagnosis, understands and agrees to treatment plan. Anticipatory guidance given. Patient agrees to follow-up as directed and is aware of reasons to seek care at the emergency department. Portions of this record may have been created with voice recognition software Level of Care: Express Care Visit Vital Signs Vital signs: Vital Signs Temperature 98.5 F 08/06/24 14:55 Pulse Rate 98 08/06/24 14:55 Respiratory Rate 20 08/06/24 14:55 Blood Pressure 120/57 L 08/06/24 14:55 Pulse Oximetry 100 08/06/24 14:55 Oxygen Delivery Room Air 08/06/24 14:55 Temperature 98.5 F 08/06/24 14:55 Pulse Rate 98 08/06/24 14:55 Respiratory Rate 20 08/06/24 14:55 Blood Pressure 120/57 L 08/06/24 14:55 Pulse Oximetry 100 12/22/24 14:55 Oxygen Delivery Room Air 08/06/24 14:55 Reviewed Procedures Orthopedic Splinting/Casting left ankle: Splinting/Casting Date: 08/06/24 OCL: posterior Pre-Procedure Neuro Vascular Exam: normal Post-Procedure Neuro Vascular Exam: normal Other Orthopedic Equipment: crutches MDM - Extremity Injury (Lower) MDM Narrative Medical decision making narrative: Discussed physical exam findings and xray. Posterior OCL and crutch training provided. Advised supportive measures and signs/symptoms to go to the ER. Pt is appropriate for outpt treatment and f/u with Dr Laguna. v/u. Differential Diagnosis Differential diagnosis: Likely ankle sprain and strain and ankle fracture Imaging Data Radiologist's impression: Patient: Sandra Jamison : 1970 MR#: [id number] Age: 53 Acct:[id number] Loc: [facility] ADM Date: 08/06/24Attending Dr: Ordering Physician: Brittany Eastman APRN Date of Service: 08/06/24 Procedure(s): XR ankle LT min 3V Accession Number(s): [id number] cc: Mamie, Eryn SENIOR; Brittany Eastman DIABETIC EDUCATOR~ XR ankle LT min 3V DATE: 08/06/2024 15:33 INDICATION: Inversion injury. Lateral left ankle pain TECHNIQUE: 4 views COMPARISON: None FINDINGS: There is a spiral fracture of the distal fibular diametaphysis with less than one cortical width posterior and no significant medial or lateral displacement. No significant angulation. The medial malleolus and posterior malleolus are intact. Alignment is preserved at the tibiotalar joint. There is mild plantar calcaneal enthesopathy without associated erosive change or periostitis. IMPRESSION: Slightly posteriorly displaced spiral fracture of the distal fibular diametaphysis Discharge Plan Discharge Clinical Impression: Fracture of distal end of fibula Qualifiers: Encounter type: initial encounter Fracture type: closed Fracture morphology: unspecified fracture morphology Laterality: left Qualified Code(s): S82.832A - Other fracture of upper and lower end of left fibula, initial encounter for closed fracture Patient Disposition: Home, Self-Care Condition: Stable Instructions: Antibiotic Form Additional Instructions: Rest, ice and elevate the left leg. Do not bear weight (no walking) on the left leg Motrin 800mg every 8 hours, as needed, for pain (take with food). Tylenol 1000mg every 8 hours. Keep splint clean, dry and in place. Use garbage bag while showering to keep splint dry. Use crutches to avoid bearing weight. Go to the ER immediately for increased pain, tingling/numbness, swelling, redness etc Follow up with Orthopedic Surgery in 1 day for further evaluation - please call for an appointment. Patient Language: Moldovan Prescriptions: New ibuprofen 800 mg tablet 800 mg PO TID PRN (Reason: pain) Qty: 15 0RF tramadol 50 mg tablet 50 mg PO Q8H PRN (Reason: pain) Qty: 15 0RF No Action estradiol 0.1 mg/24 hr patch semiweekly 0.1 mg transdermal WEEKLY bupropion HCl 100 mg tablet sustained-release 12 hr 100 mg PO DAILY Rx Instructions: FOR SMOKING CESSATION. estradiol 0.01 % (0.1 mg/gram) cream 0.1 applic VAGINAL DIRECTED Follow-up/Referrals: Mamie,PARRISH Cerna [Primary Care Provider] - Jan Laguna MD [Physician] - ( Slightly posteriorly displaced spiral fracture of the distal fibular diametaphysis) Time of Disposition: 16:14
== END 2024-08-06 16:45 | disposition home or self-care (01) ==
PROVIDERS: Emergency Provider Nurse Practitioner Family; PCP Physician Assistant
DX: S82.832A Other fracture of upper and lower end of left fibula, initial encounter for closed fracture (principal); X50.9XXA Other and unspecified overexertion or strenuous movements or postures, initial encounter; F41.9 Anxiety disorder, unspecified; F17.210 Nicotine dependence, cigarettes, uncomplicated
CPT/HCPCS: 29515; 73610; 99213; 99214; G0463

== ENCOUNTER 2024-12-08 14:37 | Emergency (ER) | payer BC, SELFPAY ==
[2024-12-08 14:47] VITALS: BP 108/55; PULSE 86; RESP 20; TEMP 36.6; O2SAT 99
--- NOTE | 2024-12-08 15:00 | ED.DENTAL ---
HPI - Dental/Oral General Chief complaint: Dental/Oral Stated complaint: left side tooth issue Time Seen by Provider: 12/08/24 15:00 Source: patient Mode of arrival: ambulatory Limitations: no limitations History of Present Illness HPI Narrative: 54-year-old female presents with complaint of left lower dental pain. Patient states that she is having difficulty finding a dentist. Afebrile. All systems reviewed and negative except as noted above. Related Data Home Medications ?Medication ?Instructions ?Recorded ?Confirmed ?Last Taken ?Type estradiol 0.01% (0.1 mg/gram) 0.1 applic vaginal DIRECTED 02/22/24 08/06/24 Unknown History vaginal cream estradiol 0.1 mg/24 hr semiweekly 0.1 mg transdermal WEEKLY 02/22/24 08/06/24 Unknown History transdermal patch Allergies Allergy/AdvReac Type Severity Reaction Status Date / Time No Known Allergies Allergy Verified 08/06/24 15:04 Review of Systems Review of Systems: CONSTITUTIONAL: Denies fever, chills, or sweats. EYES: Denies visual changes, redness, or discharge. ENT: Denies rhinorrhea, congestion, sore throat, or otalgia. Reports left lower dental pain. CARDIOVASCULAR: Denies chest pain, palpitations, or edema. RESPIRATORY: Denies cough or dyspnea. GASTROINTESTINAL: Denies abdominal pain, nausea, vomiting, or diarrhea. GENITOURINARY: Denies dysuria or hematuria. SKIN: Denies rash or itching. MUSCULOSKELETAL: Denies back pain, joint pain, or myalgia. NEUROLOGIC: Denies headache, numbness, or weakness. PSYCHIATRIC: Denies anxiety or depression. All other systems reviewed are negative, except as documented in HPI. [facility] Past Medical History Medical History Agoraphobia Anxiety Surgical History Surgical History H/O section Family History Family History Other No active medical problems Social History Social History Smoking packs per day: 0.5 Smoking cigarettes per day: 10.0 Years smoked: 35 Smoking pack-years: 17.50 Smoking status: Current every day smoker Tobacco type: cigarettes Alcohol intake: never Substance use: never Lack of Transportation: No Lack of Food: Never True Current Housing: I Have Housing Concerned About Future Housing: No Difficulty Paying Gas/Electric Bills: No Difficulty Paying for Meds: No Currently Unemployed: No Education: High School Diploma/GED Difficulty w/ Childcare or Family Care: No Gender identity (if verbalized by the patient): Female Spiritual care concerns: No Comments At time of signature, agree with nursing past medical, surgical, social and family history. There is no relevant family history pertinent to the presenting complaint. Exam Narrative: GENERAL: This is a well-nourished, well-developed patient, in no apparent distress. HEAD: normocephalic, atraumatic. EYES: PERRL. Sclera clear/white. Vision is grossly intact. EARS: External ears normal NOSE: External nose normal MOUTH: Tooth 20. Is decayed with obvious cavity, tender on palpation. No fluctuance concerning for abscess. NECK: Neck supple, non-tender without lymphadenopathy, masses or thyromegaly. CARDIOVASCULAR: Regular rate and rhythm without murmurs, gallops, or rubs. RESPIRATORY: Clear to auscultation. Breath sounds equal bilaterally. No wheezes, rales, or rhonchi. SKIN: warm, Dry, intact with no suspicious lesions or rash, good texture and turgor. NEURO: awake, alert, and oriented to person, place and time. There were no obvious focal neurologic abnormalities. EXTREMITIES: No joint tenderness, effusion, or edema noted. Course Course Level of Care: Express Care Visit Vital Signs Vital signs: Vital Signs Temperature 36.6 C 12/08/24 14:47 Pulse Rate 86 12/08/24 14:47 Respiratory Rate 20 12/08/24 14:47 Blood Pressure 108/55 L 12/08/24 14:47 Pulse Oximetry 99 12/08/24 14:47 Oxygen Delivery Room Air 12/08/24 14:47 Temperature 36.6 C 12/08/24 14:47 Pulse Rate 86 12/08/24 14:47 Respiratory Rate 20 12/08/24 14:47 Blood Pressure 108/55 L 12/08/24 14:47 Pulse Oximetry 99 12/08/24 14:47 Oxygen Delivery Room Air 12/08/24 14:47 Reviewed MDM - Dental/Oral MDM Narrative Medical decision making narrative: will prescribe clindamycin for dental infection. Patient given dental clinic list for follow-up. Patient is well-appearing, nontoxic. Please be advised this is a medical document. It is intended for [id number] communication. It is written in medical language and may contain unfamiliar abbreviations or verbiage. Medical documents are intended to carry relevant information, facts as evident, and the clinical opinion of the practitioner at the time of the encounter. This report may have been done utilizing a voice recognition system. Attempts have been made to correct errors. However, there may be uncorrected grammatical, spelling, and recognition errors present. The file time of this note does not necessarily represent the time of service. Discharge Plan Discharge Clinical Impression: Dental infection Patient Disposition: Home Condition: Stable Instructions: Antibiotic Form, Toothache (ED) Additional Instructions: Take antibiotic as prescribed until gone. Follow-up with dentist at next available appointment. Patient Language: Surinamese Prescriptions: New clindamycin HCl [Cleocin HCl] 300 mg capsule 300 mg PO Q6H 10 Days Qty: 40 0RF ibuprofen 800 mg tablet 800 mg PO TID PRN (Reason: pain) Qty: 30 0RF No Action estradiol 0.1 mg/24 hr patch semiweekly 0.1 mg transdermal WEEKLY estradiol 0.01 % (0.1 mg/gram) cream 0.1 applic VAGINAL DIRECTED Follow-up/Referrals: Mamie,PARRISH Cerna [Primary Care Provider] - Time of Disposition: 15:07
== END 2024-12-08 15:10 | disposition home or self-care (01) ==
PROVIDERS: Emergency Provider Nurse Practitioner Family; PCP Physician Assistant
DX: K04.7 Periapical abscess without sinus (principal); F17.210 Nicotine dependence, cigarettes, uncomplicated
CPT/HCPCS: 99213; G0463